=== PATIENT | female | born 1975 | race Caucasian/White ===

== ENCOUNTER 2017-09-24 22:41 | Emergency (ER) | payer BC ==
[2017-09-24] MEDS ORDERED: Morphine 10 MG/ML VIAL ONE (23:23)
[2017-09-24] MEDS ORDERED: Ondansetron HCl/PF 4 MG/2 ML Vial ONE (23:24)
[2017-09-24] MEDS ORDERED: Ketorolac Tromethamine 30 MG/ML VIAL ONE (23:24)
== END 2017-09-25 00:10 | disposition home or self-care (01) ==
LOC: MADERS 22:41
DX: M45.4 Ankylosing spondylitis of thoracic region (principal); M06.9 Rheumatoid arthritis, unspecified; F32.9 Major depressive disorder, single episode, unspecified
CPT/HCPCS: 96374; 96375; J1885; J2270; J2405

== ENCOUNTER 2017-10-09 19:51 | Emergency (ER) | payer BC ==
[2017-10-09] MEDS ORDERED: Morphine 4 MG/ML VIAL ONE (20:23)
[2017-10-09] MEDS ORDERED: Ondansetron HCl/PF 4 MG/2 ML Vial ONE (20:23)
[2017-10-09] MEDS ORDERED: Ketorolac Tromethamine 60 MG/2 ML VIAL ONE ×2 (20:23→20:30)
[2017-10-09] MEDS ORDERED: Diazepam 10 MG/2 ML SYRINGE ONE (21:06)
== END 2017-10-09 21:19 | disposition home or self-care (01) ==
LOC: MADERS 19:51
DX: M45.4 Ankylosing spondylitis of thoracic region (principal); K21.9 Gastro-esophageal reflux disease without esophagitis; F32.9 Major depressive disorder, single episode, unspecified; Z79.899 Other long term (current) drug therapy
CPT/HCPCS: 96372; 96374; 96375; J1885; J2270; J2405; J3360

== ENCOUNTER 2017-11-08 18:59 | Emergency (ER) | payer BC ==
[2017-11-08] MEDS ORDERED: Lorazepam 1 MG TAB ONE (19:58)
== END 2017-11-08 20:19 | disposition home or self-care (01) ==
LOC: MADERS 18:59
DX: F41.9 Anxiety disorder, unspecified (principal); T48.1X5A Adverse effect of skeletal muscle relaxants [neuromuscular blocking agents], initial encounter; T40.4X5A Adverse effect of other synthetic narcotics, initial encounter; T48.5X5A Adverse effect of other anti-common-cold drugs, initial encounter; K21.9 Gastro-esophageal reflux disease without esophagitis; M06.9 Rheumatoid arthritis, unspecified; M45.9 Ankylosing spondylitis of unspecified sites in spine; F32.9 Major depressive disorder, single episode, unspecified; Z79.891 Long term (current) use of opiate analgesic; Z79.899 Other long term (current) drug therapy
CPT/HCPCS: 99283